=== PATIENT | male | born 1950 | race American Indian/Alaskan Native ===

== ENCOUNTER 2019-01-12 06:01 | Observation (INO) | payer MEDICARE ==
--- NOTE | 2019-01-09 09:36 | Anesthesia Consultation ---
Anesthesia Consult and Med Hx Date of service: 01/12/19 - Airway Anesthetic Teeth Evaluation: Good, Caps ROM Head & Neck: Inadequate Mental/Hyoid Distance: Adequate Mallampati Class: Class II Intubation Access Assessment: Possibly Difficult - Pre-Operative Health Status ASA Pre-Surgery Classification: ASA3 Proposed Anesthetic Plan: General - Pulmonary Hx Smoking: Yes (STOPPED 1983 (03/07 PPD X 14 YRS)) Hx Asthma: No SOB: Yes (SOB) Hx Sleep Apnea: No (DENIZ PRE SCREEN HIGH RISK) - Cardiovascular System Hx Hypertension: Yes (X 2 YRS. Pt reports negative ETT two years ago) - Central Nervous System Hx Neuromuscular Disorder: Yes (Gout. Fibromyalgia) Hx Back Pain: Yes (BACK PAIN,NECK PAIN TO DEBBIE ARMS-RT ARM WORSE) Hx Psychiatric Problems: Yes (PANIC ATTACKS) - Gastrointestinal Hx Ulcer: Yes Hx Gastroesophageal Reflux Disease: Yes - Endocrine Hx Renal Disease: No Hx Liver Disease: No Hx Insulin Dependent Diabetes: No Hx Thyroid Disease: No - Hematic Hx Anemia: No Hx Sickle Cell Disease: No - Other Systems Hx Cancer: No - Additional Comments Anesthesia Medical History Comments: +Medical Clearance. Pt states he can climb two flights of stairs. Anxiety/Panic attacks-concerned about waking up in a panic with collar on
[~2019-01-12 06:01] MED LIST: LACTATED RINGERS 1,000 ML IV SCH
[2019-01-12] MEDS ORDERED: BACTERIOSTATIC SODIUM CHLORIDE 0.9% 30 ML VIAL INFILTRATI ONE (06:05)
[2019-01-12] MEDS ORDERED: BUPIVACAINE/PF (0.5%) 5 MG/1 ML 30 ML VIAL INFILTRATI ONE (06:53)
[2019-01-12] MEDS ORDERED: SODIUM CHLORIDE 0.9% 250ML 250 ML ONE (06:54)
[2019-01-12] MEDS ORDERED: BACITRACIN 50,000 UNIT VIAL ONE (06:54)
[2019-01-12] MEDS ORDERED: LIDOCAINE 1%/EPINEPHRINE 1:100,000 VIAL (20 ML) INFILTRATI ONE ×3 (06:54→09:00)
[2019-01-12] MEDS ORDERED: THROMBIN (RECOMBINANT) 5,000 UNIT VIAL TP ONE ×4 (06:54→09:30)
[2019-01-12] MEDS ORDERED: SODIUM CHLORIDE P/F VIAL 10 ML 10 ML ONE ×2 (06:54→09:04)
[2019-01-12] MEDS ORDERED: GELATIN SPONGE SIZE 100 TP ONE ×2 (06:54→09:30)
[2019-01-12] MEDS ORDERED: MIDAZOLAM 2 MG/2 ML INJ IV PRN (07:06)
[2019-01-12] MEDS ORDERED: MIDAZOLAM 2 MG/2 ML INJ ONE (07:10)
[2019-01-12] MEDS ORDERED: fentaNYL 100 MCG/2 ML INJ IV NR (07:15)
[2019-01-12] MEDS ORDERED: ACETAMINOPHEN 500 MG TAB PO NR (07:15)
[2019-01-12] MEDS ORDERED: CELECOXIB 200 MG CAP PO NR (07:16)
[2019-01-12] MEDS ORDERED: GABAPENTIN 300 MG CAP PO NR (07:16)
--- NOTE | 2019-01-12 07:35 | Anesthesia Day of Surgery ---
Anesthesia Day of Surgery - Day of Surgery Patient Examined: Yes Patient H&P Reviewed: Yes Patient is NPO: Yes
[2019-01-12] MEDS ORDERED: PROPOFOL 200 MG/20 ML VIAL IV ONE (07:46)
[2019-01-12] MEDS ORDERED: LIDOCAINE MPF (2%) 20 MG/1 ML VIAL 5 ML ONE (07:48)
[2019-01-12] MEDS ORDERED: SUCCINYLCHOLINE CHLORIDE 200 MG/10 ML INJ MDV ONE (07:48)
[2019-01-12] MEDS ORDERED: PROPOFOL 1,000 MG/100 ML BOTTLE IV ONE (07:52)
--- NOTE | 2019-01-12 07:52 | Short Stay Summary ---
Short Stay Documentation Date of service: 01/12/19 - History H&P: obtained from office - Allergies and Medications Current Medications: Allergies No Known Allergies Allergy (Verified 01/11/14 11:20) Home Medications Medication Instructions Recorded Confirmed Last Taken Type Doxazosin Mesylate 2 mg PO DAILY 01/06/14 01/07/19 01/11/19 History Omeprazole (Nf) [PriLOSEC (Nf)] 20 mg PO DAILY 01/06/14 01/07/19 01/12/19 04:00 History Acetaminophen [Tylenol] 500 mg PO PRN PRN 01/07/19 01/07/19 01/11/19 History Allopurinol [Zyloprim] 100 mg PO BID 01/07/19 01/07/19 01/11/19 History Losartan [Cozaar] 100 mg PO QDAY 01/07/19 01/12/19 01/11/19 History Lovastatin [Altoprev] 20 mg PO DAILY 01/07/19 01/07/19 01/12/19 04:00 History Nortriptyline [Pamelor] 25 mg PO PRN PRN 01/07/19 01/07/19 01/11/19 History Tamsulosin 0.4 mg PO DAILY 01/07/19 01/07/19 01/11/19 History metFORMIN ER Gastric 500 mg PO DAILY 01/12/19 01/12/19 01/11/19 History Active Medications Acetaminophen (Tylenol) 1,000 mg PO ONCE NR Stop: 01/12/19 13:00 Last Admin: 01/12/19 07:30 Dose: 1,000 mg Documented by: Celecoxib (Celebrex) 200 mg PO PREOP NR Stop: 01/12/19 14:00 Last Admin: 01/12/19 07:30 Dose: 200 mg Documented by: Fentanyl (Sublimaze) 50 mcg IV ONCE NR Stop: 01/12/19 10:00 Last Admin: 01/12/19 07:30 Dose: 50 mcg Documented by: Gabapentin (Gabapentin) 300 mg PO PREOP NR Stop: 01/12/19 10:00 Last Admin: 01/12/19 07:30 Dose: 300 mg Documented by: Hydromorphone HCl (Dilaudid) 0.5 mg IV Q10MIN PRN PRN Reason: Pain , Severe (7-10) Lactated Ringer's (Lactated Ringers) 1,000 mls @ 100 mls/hr IV DIRECT RAINA Last Admin: 01/12/19 06:50 Dose: 100 mls/hr Documented by: Cefazolin Sodium (Ancef/Sterile Water 2 Gm/20 Ml) 2 gm in 20 mls @ 80 mls/hr IV PREOP NR; Protocol Midazolam HCl (Versed) 2 mg IV PREOP PRN PRN Reason: Anxiety Stop: 01/12/19 18:00 Last Admin: 01/12/19 07:12 Dose: 2 mg Documented by: - Physical exam General appearance: no acute distress Lungs: Clear to auscultation Breasts: deferred Heart: Regular rate Gastrointestinal: normal, normoactive bowel sounds Male Genitourinary: deferred Rectal Exam: deferred Extremities: no ischemia, No edema - Brief post op/procedure progress note Date of procedure: 01/12/19 Pre-op diagnosis: cervical spondylosis with radiculopathy Post-op diagnosis: same Anesthesia: GETA Surgeon: SALMA ABRAHAM Estimated blood loss: minimal Specimen disposition: to lab Condition: stable - Hospital course Hospital course: Worked with PT. Swallowing intact. Incision is clean and dry. - Disposition Condition at discharge: Good Disposition: DC-01 TO HOME OR SELFCARE - Discharge Diagnoses (1) Neck pain Status: Acute Short Stay Discharge Plan Activity: advance as tolerated Weight Bearing Status: Full Weight Bearing Diet: regular Wound: open to air Follow up with: SMITA MCELROY MD [Primary Care Provider] - 7 Days Prescriptions: HYDROcodone/APAP 7.5-325 [[place] 7.5/325] 1 each PO Q6HR PRN #30 tablet PRN Reason: Pain
[2019-01-12] MEDS ORDERED: dexAMETHasone 20 MG/5 ML VIAL ONE (08:00)
[2019-01-12] MEDS ORDERED: ONDANSETRON 4 MG/2 ML INJ ONE (08:00)
[2019-01-12] MEDS ORDERED: PHENYLEPHRINE/NS 1,000 MCG/10 ML SYRINGE (OR USE) IV ONE (08:00)
[2019-01-12] MEDS ORDERED: ceFAZolin/Water 2 GM/20 ML 2 GM/20 ML SYRINGE IV NR (08:00)
[2019-01-12] MEDS ORDERED: CALCIUM CHLORIDE 1,000 MG/10 ML SYRINGE IV ONE (08:12)
[2019-01-12] MEDS ORDERED: KETAMINE/STERILE WATER 50 MG/ML SYRINGE ONE (08:28)
[2019-01-12] MEDS ORDERED: ROCURONIUM 50 MG/5 ML INJ IV ONE (08:30)
[2019-01-12] MEDS ORDERED: ePHEDrine SULFATE 50 MG/1 ML INJ ONE (09:03)
[2019-01-12] MEDS ORDERED: SODIUM CHLORIDE 0.9% 250 ML IVPB IV ONE (09:10)
[2019-01-12] MEDS ORDERED: BACITRACIN 50,000 UNIT VIAL IR ONE (09:43)
[2019-01-12] MEDS ORDERED: SODIUM CHLORIDE 0.9% P/F 10 ML VIAL IV ONE (09:43)
[2019-01-12] MEDS ORDERED: ACETAMINOPHEN 500 MG PO PRN (11:25)
[2019-01-12] MEDS ORDERED: NORTRIPTYLINE 25 MG CAP PO PRN (11:25)
[2019-01-12] MEDS: HYDROmorphone 1 MG/1 ML INJ IV PRN ×3 (11:39→12:08)
--- NOTE | 2019-01-12 11:49 | Operative Report ---
Operative Report Operative Report: DATE OF PROCEDURE: 01/12/2019 PREOPERATIVE DIAGNOSIS: Cervical spondylosis with radiculopathy POSTOPERATIVE DIAGNOSIS: Same OPERATIVE PROCEDURE: 1. Anterior cervical arthrodesis C3 4 and C4 5 2. Interbody biomechanical graft placement C3 4 and C4 5 [3.] Intraoperative platelet plasmapheresis SURGEON: Carmela Núñez MD ARTIST MODEL: None ANESTHESIA: General endotracheal anesthesia EBL: 100 mL INDICATIONS FOR PROCEDURE: Bilateral cervical radiculopathy with numbness and weakness. FINDINGS: Large bone spurs C3 4 and C4 5 using significant cord compression and bilateral neural foraminal stenosis PROCEDURE: The patient was brought to the operating room and placed on the operating table in the supine position. The patient underwent general endotracheal anesthesia without complication. After all lines were placed including monitoring the right neck was prepped and draped in a sterile fashion. After an appropriate time out was taken the area of intended incision was infiltrated with 1% lidocaine with epinephrine. The skin was opened using a 10 blade and carried down to the platysma. The platysma was divided sharply and the anterior cervical strap muscles were dissected bluntly. The anterior cervical spine was approached and a self-retaining retractor was placed under t he longus colli muscles. The microscope was brought into the field and the discectomy was begun by making an incision in the disc space of C34. The anterior aspect of the C34 disc was removed using a combination of curettes and pituitary rongeurs. The posterior aspect of the disc and osteophyte was removed using a high-speed drill and Kerrison rongeurs. The posterior longitudinal ligament was incised and the thecal sac decompressed. Bilateral foraminotomies were performed and the neural foramen were checked to ensure no remaining disc or osteophyte was present. Hemostasis was obtained and the endplates were prepared for fusion by removing the remainder of the cartilaginous portion. Biomechanical grafts were then sized packed with bone growth stimulator. The graft then placed in the interspace and secured using plates provided by L[facility]. The anterior aspect of the C4 5 disc was removed using a combination of curettes and pituitary rongeurs. The posterior aspect of the disc and osteophyte was removed using a high-speed drill and Kerrison rongeurs. The posterior longitudinal ligament was incised and the thecal sac decompressed. Bilateral foraminotomies were performed and the neural foramen were checked to ensure no remaining disc or osteophyte was present. Hemostasis was obtained and the endplates were prepared for fusion by removing the remainder of the cartilaginous portion. Biomechanical grafts were then sized packed with bone growth stimulator. The graft then placed in the interspace and secured using plates provided by R. Hemostasis was obtained and the platysma was reapproximated using 3-0 Vicryl and finally 4-0 Monocryl for the skin. The lap sponge and needle count was correct at the end of the procedure, the patient tolerated the procedure well and was taken to the recovery room extubated and in good condition.
[2019-01-12] MEDS ORDERED: ZOLPIDEM 5 MG TAB PO PRN (12:32)
[2019-01-12] MEDS ORDERED: DEXTROSE 50% IN WATER (25GM) 50 ML SYRINGE IV PRN (12:32)
[2019-01-12] MEDS ORDERED: PROMETHAZINE 25 MG RECT SUPP PR PRN (12:32)
[2019-01-12] MEDS ORDERED: MORPHINE 4 MG/1 ML INJ IV PRN (12:32)
[2019-01-12] MEDS ORDERED: BENZOCAINE/MENTHOL LOZENGE MM PRN (12:32)
[2019-01-12] MEDS ORDERED: ONDANSETRON 4 MG/2 ML INJ IV PRN (12:32)
[2019-01-12] MEDS ORDERED: NALOXONE 0.4 MG/1 ML INJ IV PRN (12:32)
[2019-01-12] MEDS: SODIUM CHLORIDE 0.9% 1000 ML 1,000 ML IV SCH (14:11)
[2019-01-12] MEDS: METOCLOPRAMIDE 10 MG/2 ML INJ IV PRN ×2 (14:11→14:56)
--- NOTE | 2019-01-12 14:33 | XRay Report ---
CERVICAL SPINE, ONE VIEW CERVICAL SPINE, ONE VIEW INDICATION: CERVICAL SPONDYLOSIS (CHURN TENDER). Cervical fusion. COMPARISON: None. IMPRESSION: 2 lateral images of the cervical spine are presented pre and post surgery. The geological scout lat eral film demonstrates an endotracheal tube in place and mild multilevel degenerative disc disease. Postoperative film demonstrates ACDF changes at C3-4 and C4-5. No acute osseous or soft tissue abnor mality. Signer Name: Juan Alberto Klein Jr, MD Signed: 01/12/2019 2:28 PM Workstation Name: [id number]
--- NOTE | 2019-01-12 14:33 | XRay Report ---
CERVICAL SPINE, ONE VIEW CERVICAL SPINE, ONE VIEW INDICATION: CERVICAL SPONDYLOSIS (CONDUCTOR ORCHESTRA). Cervical fusion. COMPARISON: None. IMPRESSION: 2 lateral images of the cervical spine are presented pre and post surgery. The administrative technician lat eral film demonstrates an endotracheal tube in place and mild multilevel degenerative disc disease. Postoperative film demonstrates ACDF changes at C3-4 and C4-5. No acute osseous or soft tissue abnor mality. Signer Name: Juan Alberto Klein Jr, MD Signed: 01/12/2019 2:28 PM Workstation Name: [id number]
[2019-01-12] MEDS: CYCLOBENZAPRINE 10 MG TAB PO PRN (16:20)
[2019-01-12] MEDS: HYDROcodone/ACETAMINOPHEN 5-325 MG TAB PO PRN (16:20)
[2019-01-12] MEDS: ceFAZolin/NS 1 GM/50 ML 1 GM/50 ML BAG IV SCH (17:40)
[2019-01-12] MEDS: INSULIN REGULAR, HUMAN 100 UNITS/1 ML SUB-Q SCH ×2 (18:01→23:19)
--- NOTE | 2019-01-12 20:52 | Post Anesthesia Evaluation ---
- Post Anesthesia Evaluation Patient Participated: Yes Airway Patent: Yes Stable Respiratory Function: Yes Nausea/Vomiting: No Temp > 96.8F: Yes Pain Manageable: Yes Adequeate Hydration: Yes Anesthesia Complications: No Block Receding Appropriately: Not Applicable Patient on Ventilator: No
[2019-01-12] MEDS: DOCUSATE SODIUM 100 MG CAP PO SCH (21:32)
[2019-01-12] MEDS ORDERED: PRAVASTATIN 20 MG TAB PO SCH (22:00)
[2019-01-13] MEDS: CYCLOBENZAPRINE 10 MG TAB PO PRN (04:07)
[2019-01-13] MEDS: ceFAZolin/NS 1 GM/50 ML 1 GM/50 ML BAG IV SCH (04:07)
[2019-01-13] MEDS: HYDROcodone/ACETAMINOPHEN 5-325 MG TAB PO PRN ×2 (04:07→10:37)
[2019-01-13] MEDS: SODIUM CHLORIDE 0.9% 1000 ML 1,000 ML IV SCH (04:09)
[2019-01-13] MEDS ORDERED: metFORMIN XR 500MG TAB PO SCH (08:00)
[2019-01-13] MEDS: INSULIN REGULAR, HUMAN 100 UNITS/1 ML SUB-Q SCH ×2 (08:36→12:43)
--- NOTE | 2019-01-13 09:28 | XRay Report ---
CERVICAL SPINE, 2 VIEWS INDICATION: post op fusion. COMPARISON: None. IMPRESSION: ACDF surgical changes at C3-4 and C4-5 appears stable since yesterday's postoperative fi lms at 0843 hours. No new acute process. Spondylosis is unchanged. The endotracheal tube has been rem pancho. No acute osseous or soft tissue abnormality. Signer Name: Juan Alberto Klein Jr, MD Signed: 01/13/2019 9:24 AM Workstation Name: [id number]
[2019-01-13] MEDS ORDERED: PANTOPRAZOLE 20 MG TAB PO SCH (10:00)
[2019-01-13] MEDS ORDERED: allopurinoL 100 MG TAB PO SCH (10:00)
[2019-01-13] MEDS ORDERED: OMEPRAZOLE 20 MG PO SCH (10:00)
[2019-01-13] MEDS ORDERED: DOXAZOSIN MESYLATE 2 MG PO SCH (10:00)
[2019-01-13] MEDS ORDERED: LOSARTAN 50 MG TAB PO SCH (10:00)
[2019-01-13] MEDS ORDERED: NON-FORMULARY EACH (Tamsulosin 0.4 MG) PO SCH (10:00)
[2019-01-13] MEDS ORDERED: METFORMIN 500 MG PO SCH (10:00)
[2019-01-13] MEDS ORDERED: DOXAZOSIN 1 MG TAB PO SCH (10:00)
[2019-01-13] MEDS ORDERED: LOVASTATIN 20 MG PO SCH (10:00)
[2019-01-13] MEDS ORDERED: TAMSULOSIN 0.4 MG CAP PO SCH (10:00)
[2019-01-13] MEDS ORDERED: NON-FORMULARY EACH (Losartan [Cozaar] 100 MG) PO SCH (10:00)
[2019-01-13] MEDS: DOCUSATE SODIUM 100 MG CAP PO SCH (10:37)
[2019-01-13 12:57] VITALS: BP 152/77
== END 2019-01-13 13:15 | disposition home or self-care (01) ==
LOC: OR 06:01 → 3B-SURG 07:48 → EDSTATUS 12:00
PROVIDERS: ADMIT Neurological Surgery; ATTEND Neurological Surgery
DX: M47.22 Other spondylosis with radiculopathy, cervical region (principal)
CPT/HCPCS: 22554; 22585; 22853; 72020; 72040; 82962; 86850; 86900; 86901; 88304; 96365; 96366; 96375; 97161; A4649; A9270; C1713; G0378; J0330; J0690; J1100; J1170; J2250; J2370; J2405; J2704; J2765; J3010; J3246; J7030; J7050; J7120; 88311; J1815; J2270